=== PATIENT | male | born 1955 | race Caucasian/White ===

== ENCOUNTER 2017-08-20 10:27 | Emergency (ER) | payer BC, SELFPAY ==
--- NOTE | 2017-08-20 11:50 | CT ---
CT CERVICAL SPINE: TECHNIQUE: Multiple axial tomograms obtained through the cervical spine with multiplanar reconstruction. HISTORY: Injury to neck. FINDINGS: Cervical vertebrae maintain height. Moderate degenerative changes are noted throughout the cervical spine. There is loss of disk space at C3-4, C5-6, and C6-7. Degenerative osteophytes are noted. Po sterior spondylitic changes are prominent at C3-4 and at C5-6. No evidence of acute fracture identified. There is evidence of a small disk protrusion at the C6-7 level. A tiny gas pocket is seen with the p rotruded disk in the anterior spinal canal on the left. IMPRESSION: There are degenerative changes in the cervical spine as described. No evidence of acute fracture. POS: [facility]
--- NOTE | 2017-08-20 13:54 | CT ---
CT HEAD WITHOUT CONTRAST: Technique: Multiple axial tomograms were through the head without IV enhancement. History: Head injury. FINDINGS: Ventricles have normal size and position. No evidence of intracranial mass or hemorrhage. There is ab normal lucency in the periventricular white matter adjacent to the anterior horn on the right. This i s most consistent with mild chronic ischemic change. Sinuses and mastoids are aerated. IMPRESSION: No evidence of acute intracranial injury. POS: [facility]
== END 2017-08-20 14:44 | disposition home or self-care (01) ==
LOC: ERS 10:27
DX: S16.1XXA Strain of muscle, fascia and tendon at neck level, initial encounter (principal); W22.8XXA Striking against or struck by other objects, initial encounter
CPT/HCPCS: 70450; 72125

== ENCOUNTER 2018-06-08 08:55 | Emergency (ER) | payer BC, OTHER ==
--- NOTE | 2018-06-08 10:21 | RAD ---
THREE VIEWS LUMBAR SPINE: Date: 06-08-18 Indication: 63-year-old male status post fall from the top of an RV camper yesterday. Patient is repo rting left ankle pain and low back pain. FINDINGS: There is endplate irregularity and suspicion for an obliquely oriented fracture plane involving anter ior superior aspect of the L5 vertebra suspicious for superior endplate compression abnormality. Ther e is also mild wedging suspicious for mild wedge fracture of L1. There is slight degenerative dextros coliosis of the lumbar spine centered at L3-4 due to disc degenerative disease. No additional fractur e is evident. IMPRESSION: 1. Findings suspicious for L1 and L5 vertebral body compression fractures. Further evaluation with CT may be helpful for additional characterization. 2. Moderate spondylosis of the lumbar spine. POS: [facility]
--- NOTE | 2018-06-08 10:47 | CT ---
CT LUMBAR SPINE WITHOUT CONTRAST: Date: 06/08/18 HISTORY: Fall. Pain. COMPARISON: Lumbar spine radiograph same date. FINDINGS: There is no hydronephrosis. No renal calculi. There is a hypodensity posterior cortex interpolar righ t kidney measuring fluid attenuation. The aortic contour is nonaneurysmal. There is a trabecular impaction fracture at L1 involving the anterior superior end plate extending to the mid vertebral body. This does not extend into the posterior vertebral body. No retropulsion. The re is approximately 10% anterior height loss. There is also fracture of the anterior vertebral body o f L5 in a coronal oblique position involving the anterior 1/4 of the anterior vertebral body. There i s approximately 20% anterior height loss. No extension to the posterior vertebral body. No retropulsion. No posterior element fracture. No transverse process fracture. The SI joints are unremarkable. IMPRESSION: 1. Trabecular impaction fracture of L1 with 10% anterior height loss. 2. Coronal oblique fracture of the anterior 1/4 of the L5 vertebral body, approximately 20% anterior height loss. No retropulsion. 3. Mild degenerative posterior disc osteophyte complexes L3-4, L4-5, and L2-3. 4. No retroperitoneal hematoma. POS: [facility]
== END 2018-06-08 10:51 | disposition home or self-care (01) ==
LOC: ERS 08:55
DX: S32.019A Unspecified fracture of first lumbar vertebra, initial encounter for closed fracture (principal); S32.059A Unspecified fracture of fifth lumbar vertebra, initial encounter for closed fracture; M25.572 Pain in left ankle and joints of left foot; K21.9 Gastro-esophageal reflux disease without esophagitis; F32.9 Major depressive disorder, single episode, unspecified; F17.220 Nicotine dependence, chewing tobacco, uncomplicated; M19.90 Unspecified osteoarthritis, unspecified site; W17.89XA Other fall from one level to another, initial encounter
CPT/HCPCS: 72100; 72131

== ENCOUNTER 2020-04-05 12:05 | Outpatient (CLI) | payer BC, MEDICARE ==
--- NOTE | 2020-04-05 12:39 | RAD ---
Exam:Right hip 2 views HISTORY: Pain COMPARISON: None FINDINGS: Preserved joint space. Contour of the femoral head is maintained. No fracture. IMPRESSION: No radiographic evidence of fracture or significant degenerative change.
--- NOTE | 2020-04-05 12:39 | RAD ---
Exam: One view pelvis HISTORY: Pain. Sciatica. Comparison none FINDINGS: Sacral alar preserved Sacral iliac joint spaces are symmetric and patent Intact bony pelvis Symmetric obturator rings Contour of both femoral heads are maintained. Hip joint spaces are symmetric. No fractures. IMPRESSION: No acute abnormality in the AP pelvic radiograph.
--- NOTE | 2020-04-05 12:41 | RAD ---
Exam: 3 views lumbar spine Comparison 06/08/2018 HISTORY: Pain and sciatica FINDINGS: 5 lumbar type vertebra. Stable mild to moderate loss of vertebral body height at L5 and mil d loss of vertebral body height at L1. No significant retropulsion Straightening of lumbar lordosis is presumed to be due to patient or muscle spasm Vacuum disc phenomenon and loss of disc space height at L2-L3 and L3-L4. Moderate loss of disc space height at L1-L2. Mild loss of disc space height at 5-S1, unchanged. IMPRESSION: 1. Stable mild loss of vertebral body height at L1 and mild to moderate loss of vertebral height at L 5. 2. Interval vacuum disc phenomenon at L2-L3 and L3-L4.
== END 2020-04-05 12:06 | disposition home or self-care (01) ==
LOC: RAD 12:05
PROVIDERS: ATTEND Family Medicine
DX: M25.551 Pain in right hip (principal); M54.31 Sciatica, right side
CPT/HCPCS: 72100; 72170

== ENCOUNTER 2020-11-04 16:02 | Outpatient (CLI) | payer BC ==
--- NOTE | 2020-11-04 16:40 | RAD ---
3 views of the right shoulder: 11/04/2020 COMPARISON: 03/13/2014 HISTORY: Pain in the right shoulder, no recent injury FINDINGS: No widening of the acromioclavicular or coracoclavicular interspace. There is no acute frac ture or evidence of dislocation. There is mild superior and inferior osteophyte formation involving the right acromioclavicular joint consistent with mild degenerative change. IMPRESSION: Mild AC joint degenerative change. No acute fracture or dislocation.
== END 2020-11-04 16:03 | disposition home or self-care (01) ==
LOC: BICRAD 16:02
PROVIDERS: ATTEND Family Medicine
DX: M25.511 Pain in right shoulder (principal); M19.011 Primary osteoarthritis, right shoulder